=== PATIENT | female | born 1960 | race Caucasian/White ===

== ENCOUNTER → 2021-04-17 | Outpatient (CLI) | payer BC ==
[~2021-04-17] VITALS: Ht 160 cm; Wt 99.8 kg
[~2021-04-17] MED LIST: ANTIVERT 25MG T25 MG PO; ASPIRIN EC81 MG PO; FLOMAX0.4 MG PO; OMNICEF 300 MG300 MG PO; PERCOCET 5/325 T1 EA PO; TORADOL 10 MG T10 MG PO; ZOFRAN4 MG PO
== END ==
LOC: EROP 13:34
DX: U07.1 COVID-19 (principal); Z23 Encounter for immunization; I10 Essential (primary) hypertension; E11.9 Type 2 diabetes mellitus without complications
CPT/HCPCS: M0247; Q0247